=== PATIENT | male | born 1970 | race African-American/Black ===

== ENCOUNTER 2019-12-17 10:56 | Inpatient (IN) | payer OTHER ==
--- NOTE | 2019-12-17 11:04 | ED ---
Shortness of Breath - HPI Summary HPI Summary: This patient is a 49 year old M with a history of spontaneous pneumothorax and HTN sent to ED from [facility] via EMS with a chief complaint of shortness of breath and chest pain since 3-4 days ago. Patient was recently on an international flight. Patient had a CXR at [facility] and was diagnosed with right- sided PTX. The last time patient had a PTX was in [place] and he had a chest tube placed. Patient denies any pain in the ED room. The patient rates the pain 0/10 in severity. Symptoms aggravated by nothing. Symptoms alleviated by nothing. - History of Current Complaint Time Seen by Provider: 12/17/19 10:57 Hx Obtained From: Patient, EMS Onset/Duration: Gradual Onset, Lasting Days - Since 3-4 days ago, Still Present Timing: Constant Current Severity: Mild Dyspnea At: Rest Aggravating Factors: Nothing Alleviating Factors: Nothing Associated Signs & Symptoms: Chest Pain Unrelated to Cough - Allergy/Home Medications Allergies/Adverse Reactions: Allergies Allergy/AdvReac Type Severity Reaction Status Date / Time No Known Allergies Allergy Verified 05/28/16 09:23 Home Medications: Home Medications Losartan TAB* [Cozaar TAB*] 100 mg PO DAILY 12/17/19 [History Confirmed 12/17/19 ] PMH/Surg Hx/FS Hx/Imm Hx Cardiovascular History: Reports: Hx Hypertension Respiratory History: Reports: Other Respiratory Problems/Disorders - Pneumothorax - Surgical History Surgery Procedure, Year, and Place: right lung collapse and chest tube 2000-12 - Family History Known Family History: Negative: Diabetes, Seizure Disorder - Social History Alcohol Use: Daily Alcohol Amount: 3-4 beers Hx Substance Use: No Substance Use Type: Reports: None Hx Tobacco Use: Yes Smoking Status (MU): Former Smoker Review of Systems Positive: Chest Pain Positive: Shortness Of Breath All Other Systems Reviewed And Are Negative: Yes Physical Exam - Summary Physical Exam Summary: Constitutional: Well-developed, Well-nourished, Alert. (-) Distressed Skin: Warm, Dry HENT: Normocephalic; Atraumatic Eyes: Conjunctiva normal Neck: Musculoskeletal ROM normal neck. (-) JVD, (-) Stridor, (-) Tracheal deviation Cardio: Rhythm regular, rate normal, Heart sounds normal; Intact distal pulses; The pedal pulses are 2+ and symmetric. Radial pulses are 2+ and symmetric. (-) Murmur Pulmonary/Chest wall: Decreased breath sounds of the right lung. Abd: Soft, (-) tenderness, (-) Distension, (-) Guarding, (-) Rebound Musculoskeletal: (-) Edema Lymph: (-) Cervical adenopathy Neuro: Alert, Oriented x3 Psych: Mood and affect Normal Triage Information Reviewed: Yes Vital Signs On Initial Exam: Initial Vitals Temp Pulse Resp BP Pulse Ox 98.8 F 91 15 163/119 99 12/17/19 10:58 12/17/19 10:58 12/17/19 10:58 12/17/19 10:58 12/17/19 10:58 Vital Signs Reviewed: Yes Procedures - Sedation Patient Received Moderate/Deep Sedation with Procedure: No Diagnostics - Laboratory Lab Statement: Any lab studies that have been ordered have been reviewed, and results considered in the medical decision making process. - Radiology CXR Radiology Interpretation Completed By: Radiologist Summary of Radiographic Findings: #. Large RIGHT tension pneumothorax. Dr. Antoine has reviewed this radiology report. Course/Dx - Course Course Of Treatment: This patient is a 49 year old M with a history of spontaneous pneumothorax and HTN sent to ED from [facility] via EMS with a chief complaint of shortness of breath and chest pain since 3-4 days ago. Patient had a CXR at [facility] and was diagnosed with right-sided PTX. CXR revealed: #. Large RIGHT tension pneumothorax. Discussed patient case with Dr. Holman, who said she can put in the chest tube, but because the PTX is recurrent, patient should be transferred for a cardiothoracic surgery evaluation. At 1149, discussed patient case with Dr. Holman, who evaluated the patient and said she will call the CT surgeon at [facility] to see their recommendations. At 1158, Dr. Holman reported that she will perform the chest tube and admit the patient for observation and then transfer in a few days if he does not improve. - Diagnoses Provider Diagnoses: Pneumothorax, right - Physician Notifications Discussed Care of Patient With: Eveline Holman Time Discussed With Above Provider: 10:29 Instructed by Provider To: Other - Discussed patient case with Dr. Holman, who said she can put in the chest tube, but because the PTX is recurrent, patient should be transferred for a cardiothoracic surgery evaluation. At 1149, discussed patient case with Dr. Holman, who evaluated the patient and said she will call the CT surgeon at [facility] to see their recommendations. At 1158, Dr. Holman reported that she will admit the patient for observation and then transfer in a few days if he does not improve. Discharge ED - Sign-Out/Discharge Documenting (check all that apply): Patient Departure - Admit - Discharge Plan Condition: Good Disposition: ADMITTED TO [facility] Referrals: Shalonda Sanchez NP [Primary Care Provider] - - Attestation Statements Document Initiated by Scribe: Yes Documenting Scribe: Sher Dominguez Provider For Whom Scribe is Documenting (Include Credential): Gurjit Antoine DO Scribe Attestation: ISher, scribed for Gurjit Antoine DO on 12/17/19 at 1317. Status of Scribe Document: Ready
--- NOTE | 2019-12-17 12:54 | HP ---
H&P (Free Text) History and Physical: DATE OF ADMISSION 12/17/19 REASON FOR ADMISSION: R PTX HPI: Meir Houser is a 49 year-old man with a History of hypertension and anxiety who presented to the ED with shortness of breath and " diaphragm" pain. He reports that he first had shortness of breath and associated upper abdominal pain 3 days ago. Yesterday he flew back from the [place], and the symptoms were worse while flying. He has otherwise been in his usual state of health. He denies chest pain, nausea vomiting, or fevers. He has had a right spontaneous pneumothorax in 2000, which was treated with a chest tube alone. Chest x-ray in the ED showed a collapsed right lung. PMH: Hypertension, anxiety, history of spontaneous right pneumothorax PSH: Chest tube placement under anesthesia 2000 Home Medications Medication Instructions Recorded Confirmed Type Propranolol 10 mg TAB [Inderal 10 10 mg PO DAILY PRN 05/28/16 12/17/19 History mg TAB] buPROPion TAB* [Wellbutrin TAB*] 150 mg PO BID 05/28/16 12/17/19 History Losartan TAB* [Cozaar TAB*] 100 mg PO DAILY 12/17/19 12/17/19 History Allergies No Known Allergies Allergy (Verified 05/28/16 09:23) FH: Father with CAD and recent CABG, DM, and prostate cancer. Mother several years ago from AIDS. He has 10 siblings and all are healthy. SH: Lives with his . He is a professor. Denies tobacco use. Smokes marijuana once daily. Drinks about 4-5 drinks daily. ROS: 10-point review of systems obtained and pertinent positives and negatives in HPI. PHYSICAL EXAM: General: NAD, sitting in bed Head: Normocephalic and atraumatic Eyes: Pupils equal. No scleral icterus. Mouth: Moist mucous membranes. Neck: Trachea midline. CV: Regular rate and rhythm. Chest: Absent breath sounds on right. Clear on left. Abdomen: Soft, nontender, nondistended. Extremities: Warm. No pedal edema. Skin: Warm and dry. Neuro: Alert and oriented x3. Diagnostics Summary of Radiographic #. Large RIGHT tension pneumothorax. Dr. Antoine Findings [CXR] has reviewed this radiology report. A&P: 49M with right tension pneumothorax. -8Fr chest tube placed (see separate procedure note). Keep to suction. Possibly switch to water seal later today if no air leak. AM CXR. -Percocet, Tylenol, ibuprofen prn for pain. -Regular diet. -Ambulate as tolerated. -HTN: continue home losartan. -Anxiety: Home buproprion
[2019-12-17] MEDS ORDERED: oxyCODONE/Acetamin 5/325 MG* TAB PO PRN (12:55)
[2019-12-17] MEDS ORDERED: Ondansetron INJ* 2 MG/ML VIAL IV PRN (12:55)
[2019-12-17] MEDS ORDERED: Ibuprofen TAB* 600 MG PO PRN (12:55)
--- NOTE | 2019-12-17 12:55 | OP ---
Operative Report - Blank - Operative Report Date of Operation: 12/17/19 Note: PRE-OP DX: R spontaneous pneumothorax POST-OP DX: Same PROCEDURE: Right chest tube placement SURGEON: Eveline Holman MD ANESTHESIA: Lidocaine 1% FINDINGS: Successful placement of 8Fr chest tube on right INDICATION: Meir Houser is a 49 year-old man who presented to the ED with 3 days of shortness of breath. He also complained of upper abdominal pain. He has a history of spontaneous pneumothorax about 20 years ago. CXR in the ED showed right tension pneumothorax. Chest tube placement was explained to the patient and his . Risks of tube placement were discussed including but not limited to bleeding, infection, or failure of tube to resolve pneumothorax. He agreed to proceed with the procedure. DESCRIPTION: The patient was supine on the stretcher. The right upper chest was prepped and draped in the usual sterile fashion. A time out was called confirming the patient and procedure. A total of 3 ml of lidocaine 1% was injected into the skin and into the pleura. A small skin erika was made at the 2nd intercostal space at the mid-clavicular line. The chest tube and needle were passed through the subcutaneous tissue while aspirating. Once there was return of air, the needle was pulled back and the tube advanced to the hub. There was release of air after the needle was removed from the tube The chest tube was connected to the PleurEvac and placed to -20 suction. The tube was secured to the skin with 3-0 silk and a sterile dressing placed. CXR after the procedure showed re-inflation of the right lung and appropriate placement of the catheter. The patient tolerated the procedure well.
[2019-12-17] MEDS: buPROPion SR TAB.SR* 150 MG PO SCH (19:48)
[2019-12-17] MEDS: Acetaminophen TAB* 325 MG PO PRN (19:50)
[2019-12-18] MEDS: Losartan TAB* 25 MG PO SCH (07:57)
[2019-12-18] MEDS: buPROPion SR TAB.SR* 150 MG PO SCH ×2 (07:57→19:50)
[2019-12-18] MEDS: Acetaminophen TAB* 325 MG PO PRN ×2 (07:58→19:51)
--- NOTE | 2019-12-18 08:28 | PN ---
Progress Note - Progress Note Date of Service: 12/18/19 Note: No complaints this morning. Coughing has improved. Has ambulated in hallways without difficulty. Decreased appetite but denies abdominal pain, nausea, vomiting. Denies shortness of breath or chest pain. Tachycardia last night has improved. Chest tube placed to water seal yesterday evening. Vital Signs - 12 hr Temp Pulse Resp BP Pulse Ox 12/18/19 07:32 97.9 F 102 18 132/84 97 12/18/19 03:19 97.9 F 94 18 128/86 99 12/17/19 23:16 97.2 F 106 18 117/79 98 General: NAD CV: Regular rhythm, tachycardic Chest: Clear to auscultation b/l. Chest tube site clean and dry. No air leak. Serous fluid in cannister. Abdomen: soft, nontender, nondistended Neuro: Alert, oriented x3 CXR: small to moderate PTX A&P 49M with spontaneous right ptx. Recurrent ptx when off suction. -Keep chest tube to -20 suction for today. -Repeat CXR in AM -Regular diet -Activity ad bertha
[2019-12-19] MEDS ORDERED: Influenza VAC *QUAD* 2019-20* 0.5 ML SYRINGE IM ONE (09:00)
[2019-12-19] MEDS: buPROPion SR TAB.SR* 150 MG PO SCH (09:27)
[2019-12-19] MEDS: Losartan TAB* 25 MG PO SCH (09:27)
--- NOTE | 2019-12-19 11:59 | PN ---
Progress Note - Progress Note Date of Service: 12/19/19 Note: No complaints. Denies shortness of breath. Denies chest pain or abdominal pain. Tolerating regular diet. Has been ambulating. Still coughing once in awhile, but improved from first hospital day. Switched to water seal mid morning. Temp Pulse Resp BP Pulse Ox 97.5 F 106 20 135/95 99 12/19/19 12:00 12/19/19 12:00 12/19/19 12:00 12/19/19 12:00 12/19/19 12:00 General: NAD, sitting in bed comfortably. CV: RRR Chest: Clear to auscultation b/l. Chest tube draining serous fluid. Chest tube site is clean and dry. No air leak. Neuro: Alert, oriented x3 A&P 49M with spontaneous R PTX s/p 8Fr chest tube. -Repeat CXR this afternoon after tube has been on water seal. If lung remains well-expanded, will plan to remove chest tube, repeat CXR, and d/c home if CXR does not show PTX. If repeat CXR shows recurrent PTX, will plan to transfer for thoracic surgery. -Regular diet. -Activity ad bertha. -HTN: Continue home losartan -Anxiety: Continue home buproprion.
--- NOTE | 2019-12-19 16:19 | DS ---
ADMIT DATE: 12/17/19 DISCHARGE DATE: 12/19/19 REASON FOR ADMISSION: Spontaneous right pneumothorax PATIENT CONDITION AT DISCHARGE: Stable PHYSICAL FINDINGS AT DISCHARGE: Clear breath sounds bilaterally. Chest tube site clean and dry. Serous fluid draining from tube. No air leak. LABORATORY STUDIES: None PROCEDURE: 8Fr chest tube placement on right HOSPITAL COURSE: Meir Houser is a 49 year-old man with a history of HTN and anxiety who presented to the ED with 3 days of SOB and "diaphragm" pain. He flew back from the [place] the day prior to presentation, and symptoms were worse while flying. In the ED, CXR showed tension pneumothorax on the right. He was in no acute distress on room air and hemodynamically stable. A right chest tube (8Fr) was placed in the ED at the bedside. The chest tube was placed to -20 suction. He had a spontaneous pneumothorax about 20 years ago which was treated with chest tube alone. The need for a thoracic surgeon was discussed with the patient and his . The patient preferred to stay at [place]. I discussed his case with on-call thoracic surgeon at [facility] Dr Nils Doherty who felt it was reasonable to try management with chest tube alone and follow up with thoracic surgery as outpatient. The patient did understand that there was a possibility that he may still require transfer to higher level of care. He was admitted to the surgical service at [facility]. About 8 hours after chest tube tube placement, there was no air leak from the chest tube. The tube was placed to water seal. CXR in the morning on 12/18 showed recurrent pneumothorax. The tube was placed back to -20 suction. The next morning, CXR did not show pneumothorax and there was no air leak. The tube was placed to water seal again. Repeat CXR about 4 hours later again showed a small pneumothorax. At this point, I discussed with the patient that he would likely need thoracic surgery during this hospital admission for definitive treatment. His preference is [facility] in [place]. DISPOSITION: Higher level of care ([facility]) DISCHARGE INSTRUCTIONS: Continue chest tube -20 suction. Activity ad bertha.
[2019-12-19 16:53] VITALS: BP 139/88
== END 2019-12-19 19:00 | disposition short-term general hospital (02) | DRG 201 ==
LOC: ED 10:56 → MED 12:55 → OBSVTOIN 12-18 09:00
PROVIDERS: ADMIT Surgery Surgical Critical Care; ATTEND Surgery Surgical Critical Care
PROC: 0W9930Z Drainage of Right Pleural Cavity with Drainage Device, Percutaneous Approach (ICD-10-PCS; principal; 2019-12-17)
DX: J93.0 Spontaneous tension pneumothorax (principal); I10 Essential (primary) hypertension; F41.9 Anxiety disorder, unspecified; Z87.891 Personal history of nicotine dependence; Z23 Encounter for immunization
CPT/HCPCS: 71045; 90686; 99284; A9270-GY; G0378